=== PATIENT | male | born 2000 | race Two or more races ===

== ENCOUNTER 2021-02-02 14:11 | Emergency (ER) | payer OTHER ==
[~2021-02-02] VITALS: Ht 177.8 cm; Wt 59.0 kg
--- NOTE | 2021-02-02 14:30 | NUR ---
PT'S NPA REMOVED, PT TOLERATED WELL. PT HAD TIC TAC CONTAINER WITH [address] "STRE[address] PERCOCET" BROUGHT IN WITH PT BY EMS. XOCHITL FROM SECURITY CALLED TO PT ROOM 18 TO WITNESS WASTE OF STREET DRUGS. DRUGS DISPOSED OF IN BIOHAZARD CONTAINER. PT'S VSS, CONTINUOUS SPO2 AND CARDIAC MONITORING IN PLACE. CALL LIGHT W/IN REACH. PT INSTRUCTED ON USE, VERBALIZED UNDERSTANDING. DENIES NEEDS AT THIS TIME.
[2021-02-02 14:51] LABS: ALANINE AMINOTRANSFERASE 117 U/L (12-78); ALBUMIN 3.7 g/dL (3.4-5.0); ANION GAP 5 mmol/L (5-15); BASOPHILS % (AUTO) 0 % (0-1); CALCIUM 9.2 mg/dL (8.5-10.1); CHLORIDE 106 mmol/L (98-107); EOSINOPHILS % (AUTO) 0 % (1-7); LYMPHOCYTES % (AUTO) 7 % (22-44); MEAN CORPUSCULAR HEMOGLOBIN 30.1 pg (27.5-34.5); MEAN CORPUSCULAR HGB CONC 33.6 g/dL (33.2-36.2); MEAN PLATELET VOLUME 8.8 fL (7.4-10.4); MONOCYTES % (AUTO) 2 % (2-9); NEUTROPHILS % (AUTO) 92 % (42-75); PLATELET COUNT 246 x10^3/uL (130-400); RED BLOOD COUNT 5.19 x10^6/uL (4.38-5.82); RED CELL DISTRIBUTION WIDTH 13.7 % (9.4-14.8)
[2021-02-02 14:52] LABS: SALICYLATE LEVEL < 1.7 mg/dL (2.8-20.0)
--- NOTE | 2021-02-02 14:52 | NUR ---
RECEIVED REPORT FROM EMILEE SEGURA. PT RESTING ON [place]. NADN. [place].
[2021-02-02 14:53] LABS: ALKALINE PHOSPHATASE 130 U/L (45-117); BILIRUBIN,TOTAL 1.1 mg/dL (0.2-1.0); CREATININE 1.08 mg/dL (0.7-1.3); TOTAL PROTEIN 8.2 g/dL (6.4-8.2)
--- NOTE | 2021-02-02 15:31 | NUR ---
PT AOX4. DISCUSSED EVENT THAT BROUGHT PT TO ED. OFFERED PT REHAB EDUCATION AND INFORMATION ON WHERE TO GO TO GET HELP. PT REFUSING INFORMATION. DENIES SI/HI. DENIES HX SI/SA. PT RESTING ON [place]. CAS[place]. VSS.
[2021-02-02 15:59] LABS: AMPHETAMINE SCREEN, URINE Negative (Negative); BARBITURATE SCREEN, URINE Negative (Negative); BENZODIAZEPINE SCREEN, URINE Negative (Negative); CANNABINOID SCREEN, URINE Positive (Negative); COCAINE SCREEN, URINE Negative (Negative); METHADONE SCREEN, URINE Negative (Negative); OPIATE SCREEN, URINE Negative (Negative)
--- NOTE | 2021-02-02 16:48 | NUR ---
PT NOTED TO DESAT TO 80% RA WHEN DOZING OFF. PER TRICH, STREET COMMISSIONER PT DESDATED TO THE 70'S RA. WHEN PT AWAKE AND TALKING PT SATING 92-95% RA. PT REQUESTING TO LEAVE AND NO LONGER WANTS TO BE MONITORED. EDUCATED PT ON POSSIBILITY OF FALLING ASLEEP AND GOING INTO RESPIRATORY ARREST AND POSSIBLY FROM THIS. PT CONTINUES TO STATES I THINK I'LL BE OKAY". RE-ITERATED TO PT POSSIBILITY OF AND AGAIN HOW PT CAME TO END UP IN ED. PT CONTINUES TO STATE HE WANTS TO LEAVE. ERP DR. WALDRON NOTIFIED AND WENT IN TO TALK TO PT AND DISCUSS POSSIBILITY OF GOING HOME GOING TO SLEEP AND NEVER WAKING UP IF HE STOPS BREATHING WHICH WOULD BE A HIGH POSSIBILITY. PT STATES "I THINK I'LL BE OKAY". AMA SIGNED. PT STATES HE WILL GO HOME WHERE HE HAS ROOMMATES. PT STATES HE DOESN'T KNOW IF ROOMMATES ARE HOME BUT THEN STATES "I THINK I'LL BE OKAY".
[2021-02-02 17:04] VITALS: BP 113/61
== END 2021-02-02 17:06 | disposition left against medical advice (07) ==
LOC: ED 16:14
DX: T40.2X1A Poisoning by other opioids, accidental (unintentional), initial encounter (principal); R41.82 Altered mental status, unspecified; F17.200 Nicotine dependence, unspecified, uncomplicated; R94.31 Abnormal electrocardiogram [ECG] [EKG]; R06.89 Other abnormalities of breathing; Y92.89 Other specified places as the place of occurrence of the external cause
CPT/HCPCS: 36415; 71045; 80053; 80299; 80307; 80320; 80329; 85025; 93005; 99285; G0480